=== PATIENT | female | born 1990 | race Caucasian/White ===

== ENCOUNTER 2017-01-16 23:55 | Emergency (ER) | payer SELFPAY ==
--- NOTE | 2017-01-17 00:27 | ED Physician Documentation ---
General Adult - HISTORIAN Historian: patient - HPI Chief Complaint: General Adult Additional Information: unifocal isolated vpc's -pt has assoc anxiety and panic attacks better controlled on present meds Onset: other (this pm-but has had in the past on occasion) Timing: still present Severity: mild - ROS CONST: no problems CVS/RESP: none. denies: chest pain, shortness of breath GI/: none MS/SKIN/LYMPH: none NEURO/PSYCH: anxiety (mild at present). denies: headache, fainting, tingling, numbness, difficulty with speech - PAST HX Past History: other (anxiety and occ panic attacks) Surgeries/Procedures: other (kidney stone w/ stents-later removed) Allergies/Adverse Reactions: Allergies Allergy/AdvReac Type Severity Reaction Status Date / Time No Known Allergies Allergy Verified 01/17/17 00:18 Home Medications: Ambulatory Orders Medication Instructions Recorded Bupropion HCl [Wellbutrin Sr] 150 mg PO BID 01/17/17 Hydroxyzine HCl [Atarax] 25 mg PO DIRECTED 01/17/17 Propranolol HCl [Inderal] 10 mg PO D 01/17/17 - SOCIAL HX Smoking History: other (vapor cigarettes) Alcohol Use: none Drug Use: none - FAMILY HX Family History: Yes (mother has hypothryoid) - REVIEWED ASSESSMENTS Nursing Assessment Reviewed: Yes Vitals Reviewed: Yes General Adult Physical Exam - PHYSICAL EXAM GENERAL APPEARANCE: mild distress EENT: eye inspection normal NECK: normal inspection, thyroid normal. No: thyromegaly, lymphadenopathy, carotid bruit RESPIRATORY: no resp distress, chest non-tender, breath sounds normal CVS: heart sounds normal, occasional extrasystoles ABDOMEN: soft, non-tender SKIN: warm/dry, normal color. No: cyanosis, diaphoresis, jaundice EXTREMITIES: non-tender, normal range of motion, no evidence of injury, no edema NEURO: oriented X3, motor nml, sensation nml, mood/affect nml Discharge Clincal Impression: occasional isolated unifocal vpc's, hx anxiety and panic attacks, urinary lithiasis Referrals: Primary Doctor,No [Primary Care Provider] - 2 Days Home Medications: Ambulatory Orders Bupropion HCl [Wellbutrin Sr] 150 mg PO BID 01/17/17 Hydroxyzine HCl [Atarax] 25 mg PO DIRECTED 08/22/17 Propranolol HCl [Inderal] 10 mg PO D 01/17/17 Comments: pt encouraged to reduce xs caffiene and vapor cigarettes. consider cardiologists eval Condition: Good Disposition: 01 HOME, SELF-CARE Decision to Admit: NO Decision Time: 00:33
[2017-01-17 00:58] VITALS: BP 115/82
== END 2017-01-17 00:40 | disposition home or self-care (01) ==
LOC: ED 23:55
DX: I49.3 Ventricular premature depolarization (principal); N20.9 Urinary calculus, unspecified
CPT/HCPCS: 99283

== ENCOUNTER 2017-01-24 14:26 | Outpatient (CLI) | payer BC | END 2017-01-24 14:27 | LOC: LAB 14:26 | PROVIDERS: ATTEND Physician Assistant | DX: F41.0 Panic disorder [episodic paroxysmal anxiety] (principal); R00.2 Palpitations | CPT/HCPCS: 36415; 84439; 84443; 84481 ==

== ENCOUNTER 2017-02-08 15:30 | Outpatient (CLI) | payer BC | END 2017-02-08 15:32 | LOC: LABRHC 15:30 | PROVIDERS: ATTEND Physician Assistant | DX: Z12.4 Encounter for screening for malignant neoplasm of cervix (principal); N89.8 Other specified noninflammatory disorders of vagina | CPT/HCPCS: 87480; 87491; 87510; 87591; 88148; G0143 ==

== ENCOUNTER 2017-03-12 18:21 | Emergency (ER) | payer BC, OTHER ==
--- NOTE | 2017-03-12 18:43 | ED Physician Documentation ---
General Adult - HISTORIAN Historian: patient (Pt is a 27 yo female with a sore throat x 3 days. No fever. Pt also has a small L finger laceration to the finger tip. Tetanus is utd.) - HPI Stated Complaint: sore throat Chief Complaint: General Adult Onset: days ago (3) Timing: still present Severity: moderate Further Comments: yes (sore throat) - ROS CONST: other (malaise) EYES/ENT: sore throat CVS/RESP: none GI/: none MS/SKIN/LYMPH: other (L finger laceration) - PAST HX Past History: other (GERD, anxiety, palpatations) Allergies/Adverse Reactions: Allergies Allergy/AdvReac Type Severity Reaction Status Date / Time promethazine HCl Allergy Unverified 01/24/17 13:49 [From Phenergan] Home Medications: Ambulatory Orders Medication Instructions Recorded Bupropion HCl [Wellbutrin Sr] 150 mg PO BID 01/17/17 Hydroxyzine HCl [Atarax] 25 mg PO DIRECTED 01/17/17 Propranolol HCl [Inderal] 10 mg PO D 01/17/17 - SOCIAL HX Smoking History: cigarettes (e-cigarettes) - FAMILY HX Family History: No - VITAL SIGNS Vital Signs: Vital Signs Temp Pulse Resp BP Pulse Ox 115/82 01/17/17 00:54 - REVIEWED ASSESSMENTS Nursing Assessment Reviewed: Yes Vitals Reviewed: Yes Progress - Progress Progress: Rx Keflex 500 mg po tid, 1st dose in ER. General Adult Physical Exam - PHYSICAL EXAM GENERAL APPEARANCE: mild distress EENT: pharyngeal erythema NECK: normal inspection, supple, lymphadenopathy RESPIRATORY: no resp distress, chest non-tender, breath sounds normal CVS: reg rate & rhythm, heart sounds normal ABDOMEN: soft, no organomegaly, normal bowel sounds BACK: normal inspection SKIN: other (superficial laceration L index finger (no suture indicated)) EXTREMITIES: non-tender, normal range of motion NEURO: oriented X3, motor nml, sensation nml Discharge Clincal Impression: L index finger laceration Pharyngitis Qualifiers: Pharyngitis/tonsillitis etiology: unspecified etiology Qualified Code(s): J02.9 - Acute pharyngitis, unspecified Referrals: Izzy Hood PA [Primary Care Provider] - Condition: Good Disposition: 01 HOME, SELF-CARE Decision to Admit: NO Decision Time: 18:49
[2017-03-12 18:52] VITALS: BP 116/78
[2017-03-12] MEDS: CEPHALEXIN 250 MG CAPSULE PO ONE (18:55)
[2017-03-12] MEDS ORDERED: NEOMYCIN SU/BACITRAC ZN/POLY 1 EACH OINT.PACK TP ONE (19:00)
== END 2017-03-12 19:08 | disposition home or self-care (01) ==
LOC: ED 18:21
DX: S61.211A Laceration without foreign body of left index finger without damage to nail, initial encounter (principal); X58.XXXA Exposure to other specified factors, initial encounter; Y93.9 Activity, unspecified; Y99.9 Unspecified external cause status; J02.9 Acute pharyngitis, unspecified
CPT/HCPCS: 87070; 87880; 99283

== ENCOUNTER 2017-05-11 13:46 | Emergency (ER) | payer SELFPAY ==
[2017-05-11 14:06] VITALS: BP 108/69
--- NOTE | 2017-05-11 14:18 | ED Physician Documentation ---
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 Wound is minor, but will not stop bleeding, pt says. Tetanus is utd.) - ROS CONST: no problems EYES/ENT: none CVS/RESP: none GI/: none MS/SKIN/LYMPH: other (laceration L middle finger) - PAST HX Past History: other (anxiety, GERD) Allergies/Adverse Reactions: Allergies Allergy/AdvReac Type Severity Reaction Status Date / Time promethazine HCl Allergy Verified 05/11/17 14:06 [From Phenergan] Home Medications: Ambulatory Orders Medication Instructions Recorded Bupropion HCl [Wellbutrin Sr] 150 mg PO BID 01/17/17 Hydroxyzine HCl [Atarax] 25 mg PO DIRECTED 01/17/17 Propranolol HCl [Inderal] 10 mg PO D 01/17/17 - SOCIAL HX Smoking History: cigarettes - FAMILY HX Family History: No - VITAL SIGNS Vital Signs: Vital Signs Temp Pulse Resp BP Pulse Ox 97.3 F L 72 18 108/69 99 05/11/17 13:55 05/11/17 13:55 05/11/17 13:55 05/11/17 13:55 05/11/17 13:55 - REVIEWED ASSESSMENTS Nursing Assessment Reviewed: Yes Vitals Reviewed: Yes Procedures Wound Location: upper extremity (L middle finger) Wound Length: 1.5 cm Wound's Depth, Shape: superficial Wound Explored: clean Irrigated w/ Saline (ccs): 10 Betadine Prep?: No (chavo) Wound Debrided: minimal Wound Repaired With: steri-strips, Dermabond Progress: finger was splinted to prevent tension on laceration General Adult Physical Exam - PHYSICAL EXAM GENERAL APPEARANCE: no distress NECK: normal inspection RESPIRATORY: no resp distress BACK: normal inspection SKIN: other (superficial v-shaped laceration over the PIP joint, dorsal L middle finger.) EXTREMITIES: normal range of motion, other (superficial v-shaped laceration over the PIP joint, dorsal L middle finger.) NEURO: oriented X3, motor nml, sensation nml Discharge Clincal Impression: minor laceration, L middle finger Referrals: Small,Izzy, PA [Primary Care Provider] - Condition: Good Disposition: 01 HOME, SELF-CARE Decision to Admit: NO Decision Time: 14:18
== END 2017-05-11 14:22 | disposition home or self-care (01) ==
LOC: ED 13:46
DX: S61.213A Laceration without foreign body of left middle finger without damage to nail, initial encounter (principal); X58.XXXA Exposure to other specified factors, initial encounter; Y93.9 Activity, unspecified; Y99.9 Unspecified external cause status
CPT/HCPCS: 12001; 99283

== ENCOUNTER 2017-11-15 13:37 | Emergency (ER) | payer BC, OTHER ==
[2017-11-15 13:49] VITALS: BP 132/82
[2017-11-15] MEDS: BUPIVACAINE HCL/PF 5 MG/ML 10ML VIAL IJ ONE (14:04)
--- NOTE | 2017-11-15 21:25 | ED Physician Documentation ---
General Adult - HISTORIAN Historian: patient - HPI Stated Complaint: L Indext lac Chief Complaint: Wound Recheck Onset: minutes Severity: mild Further Comments: yes (27 year old female patient presents with laceration to left 2nd digit. 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 last tetanus 2014 or 2015; patient cannot recall exact date.) - ROS CONST: no problems EYES/ENT: none CVS/RESP: none GI/: none MS/SKIN/LYMPH: none NEURO/PSYCH: denies: headache - PAST HX Past History: none Allergies/Adverse Reactions: Allergies Allergy/AdvReac Type Severity Reaction Status Date / Time promethazine HCl Allergy Verified 11/15/17 13:49 [From Phenergan] Home Medications: Ambulatory Orders Medication Instructions Recorded Hydroxyzine HCl [Atarax] 25 mg PO DIRECTED 01/17/17 - SOCIAL HX Smoking History: cigarettes - FAMILY HX Family History: No - VITAL SIGNS Vital Signs: Vital Signs Temp Pulse Resp BP Pulse Ox 96.9 F L 80 17 132/82 100 11/15/17 14:27 11/15/17 14:27 11/15/17 14:27 11/15/17 14:27 11/15/17 14:27 - REVIEWED ASSESSMENTS Nursing Assessment Reviewed: Yes Vitals Reviewed: Yes Procedures Wound Location: other (left 2nd digit) Wound Length: 2 Wound's Depth, Shape: flap Wound Explored: clean Irrigated w/ Saline (ccs): 200 Betadine Prep?: No (chlohexidine) Anesthesia: Other (marcaine ) Volume of Anesthetic: 4 Wound Repaired With: sutures Suture Size/Type: 5:0 Number of Sutures: 4 Progress: Length: 2 cm laceration ; "V" shaped flap Location: left 2nd digit; Wound cleaned with chlorhexidine and NS; anesthetized marcaine digital block- patient tolerated well. Irrigated with 200cc NS; no foreign body noted Closed using sterile technique, interrupted sutures 5.0 ethilon x 4 stitches Wound edges well approximated. Tetanus: 2015 or 2016; patient cannot recall exact date ED Results Lab/Radiology - Orders Orders: ED Orders Category Date Time Status Bupivacaine HCl/Pf [Marcaine 0.5%] Med 11/15/17 13:56 Discontinued 5 mg IJ NOW ONE General Adult Physical Exam - PHYSICAL EXAM GENERAL APPEARANCE: mild distress EENT: eye inspection normal, ANA RESPIRATORY: no resp distress CVS: reg rate & rhythm SKIN: warm/dry, normal color, other (left 2nd digit with "V" shaped laceration to laceration aspect along nail bed. No nail damage. ) EXTREMITIES: non-tender, normal range of motion, no edema NEURO: oriented X3, motor nml, sensation nml, mood/affect nml Discharge Clincal Impression: Finger laceration Qualifiers: Encounter type: initial encounter Finger: index finger Damage to nail status: without damage Foreign body presence: without foreign body Laterality: left Qualified Code(s): S61.211A - Laceration without foreign body of left index finger without damage to nail, initial encounter Condition: Stable Disposition: 01 HOME, SELF-CARE Decision to Admit: NO Decision Time: 14:15
== END 2017-11-15 14:27 | disposition home or self-care (01) ==
LOC: ED 13:37
DX: S61.211A Laceration without foreign body of left index finger without damage to nail, initial encounter (principal); X58.XXXA Exposure to other specified factors, initial encounter; Y92.513 Shop (commercial) as the place of occurrence of the external cause; Y93.9 Activity, unspecified; Y99.9 Unspecified external cause status
CPT/HCPCS: J3490; J7030; 12001; 96372

== ENCOUNTER 2018-04-25 11:18 | Outpatient (CLI) | payer BC | END 2018-04-25 11:20 | LOC: LAB 11:18 | PROVIDERS: ATTEND Physician Assistant | DX: R53.83 Other fatigue (principal) | CPT/HCPCS: 36415; 84439; 84443; 84481 ==

== ENCOUNTER 2018-06-02 17:17 | Emergency (ER) | payer BC ==
[2018-06-02 17:33] VITALS: BP 117/84
--- NOTE | 2018-06-02 17:45 | ED Physician Documentation ---
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 pt reports her tetanus immunization was three years ago. She denies other symptoms or complaints. pt denies current chest pain, dyspnea, syncope/near syncope, headache, dizziness , visual disturbances, n/v/d, fever/chills, rash, sick contacts, dysuria, melena or hematochezia, bleeding or easy bruising, change in bowel or bladder function, no recent weight loss/gain, anxiety or depression. ROS Negative unless otherwise specified. - ROS CONST: no problems - PAST HX Past History: other (GERD anxiety) Surgeries/Procedures: other (kidney stone removal with renal stents x 2 weeks. ) Allergies/Adverse Reactions: Allergies Allergy/AdvReac Type Severity Reaction Status Date / Time promethazine HCl Allergy Verified 11/15/17 13:49 [From Phenergan] - SOCIAL HX Smoking History: other (vape) Alcohol Use: none Drug Use: none - FAMILY HX Family History: Yes - VITAL SIGNS Vital Signs: Vital Signs Temp Pulse Resp BP Pulse Ox 98.1 F 78 16 117/84 98 06/02/18 17:22 06/02/18 17:22 06/02/18 17:22 06/02/18 17:22 06/02/18 17:22 - REVIEWED ASSESSMENTS Nursing Assessment Reviewed: Yes Vitals Reviewed: Yes General Adult Physical Exam - PHYSICAL EXAM GENERAL APPEARANCE: no distress EENT: eye inspection normal, ENT inspection normal, pharynx normal, no signs of dehydration, ANA, no nystagmus, TM's nml NECK: normal inspection RESPIRATORY: no resp distress CVS: equal pulses ABDOMEN: No: tenderness SKIN: other (Left distal index finger has 1 cm superficial laceration. ) EXTREMITIES: non-tender, normal range of motion NEURO: oriented X3, motor nml, sensation nml, mood/affect nml Discharge Clincal Impression: Finger laceration Qualifiers: Encounter type: initial encounter Finger: index finger Damage to nail status: without damage Foreign body presence: without foreign body Laterality: left Qualified Code(s): S61.211A - Laceration without foreign body of left index finger without damage to nail, initial encounter Referrals: Izzy Hood PA [Primary Care Provider] - 2 Days Additional Instructions: keep clean dry. keep covered during the day while at work. may run water briefly over but do not soak or scrub. wear glove or finger condom while at work or if moist continuously leave open to air at night. Glue will fall off in 5 days. do not pick or pull off. Monitor and seek medical care for worsening symptoms or signs of infection: fever, chills, pus drainage, increased swelling, redness, or red streaks on finger/hand or any concern. UNDERSTAND THAT THIS IS AN EMERGENCY EVALUATION FOR YOUR COMPLAINT TODAY AND BY NATURE IS LIMITED AND NOT A SUBSTITUTE FOR ONGOING MEDICAL CARE AND THAT EVEN THOUGH TEST RESULTS AND TREATMENT PLAN WERE EXPLAINED THERE MAY BE A NEED FOR ADDITIONAL TESTING TO FULLY DETERMINE THE EXTENT OF YOUR ILLNESS/INJURY/OR CONCERN SO YOU SHOULD CONTACT AND OR ESTABLISH WITH A PRIMARY CARE PROVIDER (OR REFERRAL DOCTOR IF APPLICABLE) FOR AN APPOINTMENT SOON POSSIBLE. Condition: Good Disposition: 01 HOME, SELF-CARE Decision to Admit: NO Date of Decison to Admit: 06/02/18 Decision Time: 17:56
== END 2018-06-02 18:10 | disposition home or self-care (01) ==
LOC: ED 17:17
DX: S61.211A Laceration without foreign body of left index finger without damage to nail, initial encounter (principal); W27.2XXA Contact with scissors, initial encounter; Y93.89 Activity, other specified; Y92.9 Unspecified place or not applicable
CPT/HCPCS: 12001; 99282

== ENCOUNTER 2018-09-05 14:18 | Emergency (ER) | payer BC ==
[2018-09-05] MEDS ORDERED: Lidocaine 1% 5ml 10 MG/ML VIAL IJ ONE ×2 (14:33→15:24)
--- NOTE | 2018-09-05 15:43 | ED Physician Documentation ---
General Adult - HPI Stated Complaint: laceration Chief Complaint: Laceration/Recheck/Suture Additional Information: Patient presents to ED with left index finger laceration she sustain yesterday afternoon while cutting hair. She states she tried to glue it but it open up again and wont stop bleeding. She is UTD on her tetanus. Onset: hours (16) Timing: still present Further Comments: no - ROS CONST: no problems EYES/ENT: none CVS/RESP: none GI/: black stools MS/SKIN/LYMPH: none - PAST HX Past History: none Other History: none Surgeries/Procedures: none Allergies/Adverse Reactions: Allergies Allergy/AdvReac Type Severity Reaction Status Date / Time promethazine HCl Allergy Verified 11/15/17 13:49 [From Phenergan] - SOCIAL HX Smoking History: cigarettes Alcohol Use: none Drug Use: none - FAMILY HX Family History: No - VITAL SIGNS Vital Signs: Vital Signs Temp Pulse Resp BP Pulse Ox 71 17 119/73 97 09/05/18 14:20 09/05/18 14:20 09/05/18 14:20 09/05/18 14:20 - REVIEWED ASSESSMENTS Nursing Assessment Reviewed: Yes Vitals Reviewed: Yes Procedures Wound Location: upper extremity (left index) Wound Length: 1 cm Wound's Depth, Shape: irregular, flap Wound Explored: clean Irrigated w/ Saline (ccs): 100 Anesthesia: 1% Lidocaine Wound Debrided: minimal Wound Repaired With: sutures Suture Size/Type: 4:0 Number of Sutures: 4 Layer Closure?: No Sterile Dressing Applied?: Yes Splint Applied?: No Sling Applied?: No ED Results Lab/Radiology - Orders Orders: ED Orders Category Date Time Status Cleanse with NS and Chlorhexid 1T Care 09/05/18 14:34 Active Lidocaine 1% 5ml [Xylocaine] Med 09/05/18 14:33 Discontinued 50 mg IJ NOW ONE Lidocaine 1% 5ml [Xylocaine] Med 09/05/18 15:24 Discontinued 50 mg IJ NOW ONE General Adult Physical Exam - PHYSICAL EXAM GENERAL APPEARANCE: no distress EENT: ANA NECK: normal inspection, supple RESPIRATORY: no resp distress, breath sounds normal CVS: reg rate & rhythm, heart sounds normal ABDOMEN: soft, normal bowel sounds BACK: normal inspection SKIN: warm/dry EXTREMITIES: non-tender, other (1 cm flap laceration to left index finger ) NEURO: oriented X3 Discharge Clincal Impression: Finger laceration Qualifiers: Encounter type: initial encounter Finger: index finger Damage to nail status: without damage Foreign body presence: without foreign body Laterality: left Qualified Code(s): S61.211A - Laceration without foreign body of left index finger without damage to nail, initial encounter Referrals: Primary Doctor,No [Primary Care Provider] - 2 Days Additional Instructions: 1. Tylenol and/or Ibuprofen as needed for pain 2. Keep wound clean and dry 3. Follow up with PCP in 12-05 for suture removal 4. Return to ER for new or worsening symptoms Condition: Stable Disposition: 01 HOME, SELF-CARE Decision to Admit: NO Date of Decison to Admit: 09/05/18 Decision Time: 16:11
[2018-09-05 16:12] VITALS: BP 110/75
== END 2018-09-05 16:00 | disposition home or self-care (01) ==
LOC: ED 14:18
DX: S61.211A Laceration without foreign body of left index finger without damage to nail, initial encounter (principal); W27.2XXA Contact with scissors, initial encounter; Y93.89 Activity, other specified; Y92.9 Unspecified place or not applicable
CPT/HCPCS: 12001; 99282

== ENCOUNTER 2018-12-06 11:16 | Outpatient (CLI) | payer OTHER ==
[2018-12-06 11:38] LABS: BASOPHILS % 0.6 % (0.0-1.5); NEUTROPHILS # 12.6 # k/uL (1.4-7.7)
[2018-12-06 12:29] LABS: eGFR (Non-African) > 60
== END 2018-12-06 11:18 ==
LOC: SUPCPDRO 11:16 → LAB 11:16
PROVIDERS: ATTEND Family Medicine
DX: K29.01 Acute gastritis with bleeding (principal); R53.83 Other fatigue
CPT/HCPCS: 36415; 80053; 82270; 84439; 84443; 84481; 85025